=== PATIENT | female | born 1970 | race Caucasian/White ===

== ENCOUNTER 2016-12-10 01:59 | Emergency (ER) | payer SELFPAY ==
[2016-12-10] MEDS ORDERED: HYDROMORPHONE HCL INJ/PF 2 MG/ML AMPULE IM ONE (02:29)
[2016-12-10] MEDS ORDERED: DEXAMETHASONE SOD PHOS INJ 10 MG/1 ML VIAL IM ONE (02:29)
--- NOTE | 2016-12-10 02:34 | ER Document Report ---
ED General - General Chief Complaint: Low Back Pain Stated Complaint: BACK PAIN Notes: Patient is 46 year old female with a history of multiple back surgeries. Patient said that she went to [place] back on the couch and felt a pop in her back and then started having pain rating down the right leg. No actual trauma. Patient says her last surgeries were this past summer. She has pain that radiates from her right lower back down her right leg. She had the exact same pain in the past. She used to have it more frequently before her surgery. She has some mild numbness in the right leg. She does have left-sided foot drop she says this is chronic and unchanged. She denies any acute pain going into the left leg. She says she does have some pain that radiates across to the left side of her back but says is mild in comparison to the pain she has on her right side. No loss of bowel control. No urinary retention. No other complaints at this time. TRAVEL OUTSIDE OF THE [place] IN LAST 30 DAYS: No - Related Data Allergies/Adverse Reactions: Penicillins Allergy (Severe, Verified 12/10/16 02:06) Anaphylaxis Past Medical History - Social History Smoking Status: Current Every Day Smoker Chew tobacco use (# tins/day): No Frequency of alcohol use: Occasional Drug Abuse: None Family History: Reviewed & Not Pertinent Patient has suicidal ideation: No Patient has homicidal ideation: No Renal/ Medical History: Denies: Hx Peritoneal Dialysis Review of Systems - Review of Systems Notes: My Normal Review Basic REVIEW OF SYSTEMS: CONSTITUTIONAL : Denies fever, chills, or sweats. Denies recent illness. MUSCULOSKELETAL: Back pain. SKIN: Denies rash or skin lesions.s. NEUROLOGICAL: Denies altered mental status or loss of consciousness. Denies headache. Denies weakness or paralysis or loss of use of either side. Denies problems with gait or speech. Denies sensory or motor loss. ALL OTHER SYSTEMS REVIEWED AND NEGATIVE. Physical Exam - Notes Notes: General Appearance: Well nourished, alert, cooperative, no acute distress, moderate obvious discomfort. Vitals: reviewed, See vital signs table. Head: no swelling or tenderness to the head Eyes: PERRL, EOMI, Conjuctiva clear Back: Pain to palpation over the right lower back. Pain into the right gluteal region to palpation. Left lower back has mild pain to palpation. Extremities: Patient has good strength with plantar flexion and the left foot. She does not have good strength with dorsiflexion but this is chronic for her. Patient has good strength with plantar and dorsiflexion of the right foot. Patient is able to feel me touch her right foot and right leg but says it's slightly diminished compared to normal. Patellar reflexes are 1 out of 4 and equal in both lower extremities., good pulses in all extremities, no swelling or tenderness in the extremities, no edema. Skin: warm, dry, appropriate color, no rash Neuro: speech clear, oriented x 3, normal affect, responds appropriately to questions. Course - Transfer of Care Notes: 12/10/16 02:40 The nurse asked me to come back to the room to patients want to know about having an x-ray obtained. I did go and speak with the patient informed her that I'm happy to obtain x-ray however x-ray just shows the bones in her spine and most likely would not show an acute problem list we are looking for fracture. I told her I do not suspect a fracture. Patient said, "I know I don' t have a fracture. I need an MRI." I informed patient that we do not have MRI capability at nighttime. We do not have an electroneurodiagnostic technologist on-call at nighttime. Informed the daytime we do an MRI capabilities but they're unlikely to do an MRI if she does not have evidence of an acute surgical emergency which currently she does not stop her physical exam and symptoms. Patient then told me that that is not true because "every hospital has MRI capability at nighttime ". I informed her that that is indeed not true and in fact many hospitals do not have MRI coverage at night. Patient then yelled at her son and said " Why did you bring me to this fucking place!". I will continue to try to treat the patient's pain did try to help resolve her symptoms. I will continue to reevaluate her. I currently do not see evidence of an injury that would require acute neurosurgical intervention. I do not think she needs an acute transfer to an outside facility for emergent MRI being that she has no loss of bowel control, no urinary retention, no new lower extremity weakness, she has very good strength in both lower extremities with exception of her foot drop in the left foot which is chronic and unchanged. 12/10/16 02:45 12/10/16 02:49 I did go back and try to reason with the patient again. I informed her that since she did have back surgery 6 months ago I would be willing to go ahead and order the MRI for the morning time to be performed. I again informed her that I would not be able get an MRI tonight as there is no electroneurodiagnostic technologist on-call. She does not meet criteria to be transferred emergently to facility for an emergent MRI as again she does not have new onset leg weakness, no loss of bowel control , no urinary retention, no saddle anesthesia. Currently she still has no signs of a emergent surgical intervention. Patient just started yelling at me again and said she would not stay in this hospital 1 more minute. She requests to be discharged. I cannot hold the patient against her will. I will discharge her as she requests. I encourage her to return to the ER anytime for reevaluation further treatment. 12/10/16 03:03 I went back again to talk with the patient again. I did request that she at least allow me to get a post void residual. She denies any urinary retention; however, if the post void residual does show some urinary retention than I can make a case to potentially transfer her to a facility for emergent MRI. Patient refuses to allow me to do this and says she does not want to be transferred does not want to stay here any longer. She then asks me to to order a MRI in the morning and says she would probably be back in and to have it performed. I informed her without her being an active ER patient and it being ordered stat from the ER, there is a chance it might not be able to be performed this morning. Her being here guarantees us to be able to perform the MRI. I informed her that I do not feel comfortable with this as the MRI results would not be pushed to an active ER chart and therefore results could be missed. I told her if she wants to go home and come back and check back in to the ER than that would be more appropriate as she would be under active care of an ER physician and MRI could be performed quickly this morning and the results would be reviewed immediately for her and therefore there would be no delay or problem in getting the results to her. Also, I again offered for her to stay here in our ER to treat her pain until MRI for this morning. Once again this is out of respect to the fact that the patient is from out of town and that it would be potentially a while before she could get an MRI being that she is out of town and away from her primary care doctor or neurosurgeon. This is not because of any signs of any finding on exam that would be consistent with acute need for emergent surgical intervention. The only further testing I could perform would be rectal exam and post for residual of her bladder. Patient again refuses any further care from me. Patient then walked out of the room with her son. Patient walked out on her own power without significant difficulty. In watching her gait the only abnormal finding I saw was the left foot drop which again is chronic. Discharge - Discharge Clinical Impression: Back pain Qualifiers: Back pain location: low back pain Chronicity: acute Back pain laterality: right Sciatica presence: with sciatica Sciatica laterality: sciatica of right side Qualified Code(s): M54.41 - Lumbago with sciatica, right side Condition: Stable Disposition: HOME, SELF-CARE Additional Instructions: Please reconsider returning to the ER for reevaluation. If you are adamant to not return to our ER, please consider following up closely with another ER or urgent care or physician for close reevaluation. It is extremely important you go to an ER immediately if you develop leg weakness, loss of bowel control, numbness in your in your pelvic area or if you feel your symptoms are worsening.
== END 2016-12-10 02:58 | disposition home or self-care (01) ==
LOC: ER 01:59
DX: M54.41 Lumbago with sciatica, right side (principal); R20.0 Anesthesia of skin; M21.372 Foot drop, left foot; Z98.890 Other specified postprocedural states; F17.200 Nicotine dependence, unspecified, uncomplicated
CPT/HCPCS: 99283; 96372; J1170; J1100